=== PATIENT | female | born 1950 | race Caucasian/White ===

== ENCOUNTER 2025-06-23 05:54 | Emergency (ER) | payer MEDICARE, OTHER, SELFPAY ==
[2025-06-23 06:13] VITALS: BP 120/79
--- NOTE | 2025-06-23 08:05 | ED.GENMED ---
History of Present Illness
General
Chief Complaint: Musculo-Skeletal Complaint
Time Seen by Provider: 06/23/25 07:47
History of Present Illness
History of Present Illness:
75-year-old female presents to the emergency department for evaluation of progressively worsening right knee and right calf swelling for the past 3 days. Denies any falls or injuries. She has known arthritis but does not typically have swelling in
the knee. Has not taken any medication for pain. She is able to ambulate. No fevers or chills
Past History
Past History
ED Past Medical History: Asthma
ED Past Surgical History: None
Social History
Tobacco: Non-smoker
Alcohol: None
Drug: None
Personal:
Living: with family
Employment: Retired
Review of Systems
Review of Systems
Allergies reviewed?: Yes
All Other Systems: ROS reviewed and negative except as documented in HPI and ROS
Phy Exam
Physical Exam
Physical Exam:
GEN: Well appearing, NAD, WDWN
HEENT: Oral mucosa moist, no scleral icterus
Cardiac: Regular rate
Lung: No respiratory distress, no tachypnea
MSK: Right knee effusion noted with moderate swelling of the proximal calf, tenderness to the popliteal space, no calf rigidity, negative Homans' sign, strong dorsalis pedis pulse
Skin: Good color, no pallor or jaundice, no rashes
Neuro: AO x3, moves all extremities freely
Psych: Calm, cooperative
Course
Orders/Labs/Results
Orders:
Orders
06/23/25 06:19
Knee, Right 4 or More Views [CR Knee- Right 4 Or More View*] Urgent
Comment:
Reason For Exam: pain and swelling
Vital Signs
Initial and Last Documented VS:
Initial Vital Signs
Temp Pulse Resp BP Pulse Ox
98.5 F 95 20 120/79 96
06/23/25 06:13 06/23/25 06:13 06/23/25 06:13 06/23/25 06:13 06/23/25 06:13
Last Documented Vital Signs
Temp Pulse Resp BP Pulse Ox
98.5 F 87 18 134/78 96
06/23/25 08:11 06/23/25 08:11 06/23/25 08:11 06/23/25 08:11 06/23/25 08:11
MDM/Problems Addressed
MDM/Problems Addressed:
X-ray shows degenerative changes with a small effusion independently interpreted by me. Clinically this is most likely ruptured Rivas's cyst secondary to persistent arthritis. No concern for DVT. Will prescribe NSAIDs and recommend orthopedic
follow-up, no concern for septic arthritis no indication for emergent arthrocentesis
*Pulse Oximetry
SaO2: 96
Oxygen Mode of Delivery: Room air
Patient hypoxic: no
*Critical Care Note
Total Time (30-74mins, 75-104mins- exclusive of procedures): Not Applicable
ED Attending Note
-
Portions of this chart may have been created with voice recognition software.� Occasional wrong word or��sound alike� substitutions may have occurred due to the inherent limitations of voice recognition software.
Discharge Plan
Departure
Patient Disposition: Home (Routine Discharge)
Date of Disposition: 06/23/25
Time of Disposition: 08:05
Patient with high blood pressure during this ER visit?: No
Discharge Problem:
Arthritis of right knee
Instructions: Osteoarthritis
Prescriptions:
New
celecoxib 200 mg capsule
200 mg PO BID Qty: 20 0RF
No Action
hydrocodone-acetaminophen 5 MG/500 MG tablet
1 tab PO .Q4-6HPRN PRN (Reason: PAIN) Qty: 20 0RF
fluticasone propion-salmeterol 1 DISK blister with device
1 puff inhalation DAILY
cefixime [Suprax] 400 MG tablet
400 mg PO DAILY Qty: 10 0RF
metronidazole 500 MG tablet
500 mg PO TID Qty: 30 0RF
Referrals:
Demarcus Durán MD [Active, Orthopedics] - Call in 1-3 days for appt
Interventions
Interventions:
*Risk Screen - Suicide Last Done: 06/23/25 06:13
*General Assessment Last Done: 06/23/25 06:13
*Neglect/Abuse Screening Last Done: 06/23/25 06:13
*ED- Fall Risk Assessment Last Done: 06/23/25 06:13
*ED COVID-19 Vaccine History Last Done: 06/23/25 06:13
*ED Influenza Vaccine History Last Done: 06/23/25 06:13
*Nursing Disposition Last Done: 06/23/25 08:11
ED-Musculoskeletal Assessment Last Done: 06/23/25 08:08
Discharge Date and Time
Discharge Date/Time: 06/23/25 08:12
Print Language: [id number]
[2025-06-23 08:08] VITALS: BP 134/78; BMI 27.0
--- NOTE | 2025-06-23 08:10 | EDRN ---
Discharge instructions given to patient by Sami Minaya PA-C. Verbalized understanding. Refused wheelchair when offered.
[2025-06-23 08:11] VITALS: BP 134/78
== END 2025-06-23 08:12 | disposition home or self-care (01) ==
LOC: EMR 05:54
PROVIDERS: EMERGENCY PHYSICIAN Emergency Medicine
DX: M17.11 Unilateral primary osteoarthritis, right knee (principal); J45.909 Unspecified asthma, uncomplicated
CPT/HCPCS: 99283; 73564

== ENCOUNTER 2025-06-26 08:20 | Emergency (ER) | payer MEDICARE, OTHER, SELFPAY ==
[2025-06-26 08:26] VITALS: BP 133/81
--- NOTE | 2025-06-26 09:50 | ED.GENMED ---
History of Present Illness
General
Chief Complaint: Swelling
Source: patient
Exam Limitations: none
Time Seen by Provider: 06/26/25 09:48
Nursing documentation reviewed up to this point in time: agreed with
History of Present Illness
History of Present Illness:
75-year-old female with history of asthma, presented here on 3 days ago for worsening right knee and right calf pain and swelling over the previous 3 days. X-ray showed DJD with small effusion and diagnosed clinically with a Rivas's cyst. She is
here today with increasing swelling and pain in the right lower leg. Denies chest pain or shortness of breath. Denies fever or chills.
Past History
Past History
ED Past Medical History: Asthma
ED Past Surgical History: Orthopedic
Social History
Tobacco: Non-smoker
Alcohol: None
Drug: None
Personal:
Living: with family
Employment: Retired
Review of Systems
Review of Systems
Allergies reviewed?: Yes
All Other Systems: ROS reviewed and negative except as documented in HPI and ROS
Phy Exam
Physical Exam
Physical Exam:
GENERAL: No acute distress. A&Ox3.
CONSTITUTIONAL: Afebrile.
RESPIRATORY: Regular respirations, nonlabored, lungs clear.
CARDIOVASCULAR: Regular rate and rhythm, no murmurs, no rubs.
MUSCULOSKELETAL: Right leg from knee to ankle +1-2 swelling, warm compared to the opposite leg. Normal pedal pulse, brisk capillary refill. Generally mildly tender to palpate. In general patient moves with ease. Well perfused.
SKIN: Warm, dry, pink. Both mid leblanc to ankles mildly erythematous with numerous tiny scabs consistent with her admitting that she scratches the areas frequently.
PSYCH: Normal mood and affect. Well kept, interactive and appropriate
NEUROLOGIC: Awake, alert and oriented. No focal neurological deficits
Scores
Heart Failure Risk
Heart Failure Risk Score: Not Applicable
Course
Orders/Labs/Results
Orders:
Orders
06/26/25 08:28
Periph Venous Lwr Ext Rt US [US Periph Venous LOWER Ext RT] Urgent
Comment:
Reason For Exam: swelling
Vital Signs
Initial and Last Documented VS:
Initial Vital Signs
Temp Pulse Resp BP Pulse Ox
98.5 F 95 18 133/81 98
06/26/25 08:26 06/26/25 08:26 06/26/25 08:26 06/26/25 08:26 06/26/25 08:26
Last Documented Vital Signs
Temp Pulse Resp BP Pulse Ox
98.5 F 95 18 123/75 94
06/26/25 08:26 06/26/25 08:26 06/26/25 08:26 06/26/25 10:15 06/26/25 10:17
MDM/Problems Addressed
Differential Diagnosis Includes:
DVT, ruptured Rivas's cyst, cellulitis
MDM/Problems Addressed:
75-year-old female with history of asthma, presented here on 3 days ago for worsening right knee and right calf pain and swelling over the previous 3 days. X-ray showed DJD with small effusion and diagnosed clinically with a Rivas's cyst. She is
here today with increasing swelling and pain in the right lower leg. Denies chest pain or shortness of breath. Denies fever or chills.
Afebrile, NAD
Ultrasound right lower extremity radiology report read: No sonographic evidence for RIGHT lower extremity deep venous thrombosis.
There is a 12.2 x 2.1 x 3.7 cm complex collection extending from the popliteal fossa into the proximal calf. This may represent a large complex Rivas's cyst, hematoma or possible collection/abscess.
Copy of report as well as a picture of Rivas's cyst provided to patient with education
She has mild erythema of both ankles with numerous tiny scabs consistent with her admission to scratching the areas frequently. No cellulitis
She states the discomfort right now is 3-4 out of 10, it gets up to 9 at times when she is walking. She is however able to ambulate independently. No infectious symptoms, do not suspect abscess.
Referred to orthopedic for follow-up. She was referred to orthopedics Dr. Durán when she was here 3 days ago but has not called them yet
She will call today for appointment. Daughter at bedside.
*Pulse Oximetry
SaO2: 98
Oxygen Mode of Delivery: Room air
Patient hypoxic: no
*Critical Care Note
Total Time (30-74mins, 75-104mins- exclusive of procedures): Not Applicable
ED Attending Note
-
Portions of this chart may have been created with voice recognition software.� Occasional wrong word or��sound alike� substitutions may have occurred due to the inherent limitations of voice recognition software.
Discharge Plan
Departure
Patient Disposition: Home (Routine Discharge)
Date of Disposition: 06/26/25
Time of Disposition: 10:32
Patient with high blood pressure during this ER visit?: No
Condition: Good
Discharge Problem:
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
Instructions: Rivas's Cyst (DC)
Prescriptions:
No Action
fluticasone propion-salmeterol 1 DISK blister with device
1 puff inhalation DAILY
celecoxib 200 mg capsule
200 mg PO BID Qty: 20 0RF
acetaminophen [Tylenol] 325 mg Tablet
650 mg PO Q4H PRN (Reason: pain)
Referrals:
Demarcus Durán MD [Active, Orthopedics] - Call in 1-3 days for appt
UNKNOWN - PT NOT,INTERVIEWE [Unknown Provider]
Activity Restrictions/Additional Instructions:
As we discussed, since the Celecoxib is not helping, STOP that and try Ibuprofen 400 mg up to twice a day along with Tylenol if needed.
When you are resting, keep the foot elevated to the level of your heart or slightly higher.
Continue to move the leg doing the isometric exercises as we showed you and you may walk around as usual but no lengthy walking until further instructed by the orthopedic doctor.
Call the orthopedic doctors office today and make appointment.
Return here immediately from worse swelling, worse pain, fever, worsening redness, chills or feeling worse in any way
Interventions
Interventions:
*Risk Screen - Suicide Last Done: 06/26/25 08:26
*General Assessment Last Done: 06/26/25 08:26
*Neglect/Abuse Screening Last Done: 06/26/25 10:21
*ED- Fall Risk Assessment Last Done: 06/26/25 10:20
*ED COVID-19 Vaccine History Last Done: 06/26/25 10:20
*ED Influenza Vaccine History Last Done: 06/26/25 10:20
*Nursing Disposition Last Done: 06/26/25 10:53
ED- Cardiac Assessment Last Done: 06/26/25 10:21
ED- Pulmonary Assessment Last Done: 06/26/25 10:21
ED-Skin Assessment Last Done: 06/26/25 10:21
Discharge Date and Time
Discharge Date/Time: 06/26/25 10:50
Print Language: LAO
[2025-06-26 10:12] VITALS: BMI 26.3
[2025-06-26 10:13] VITALS: BP 123/75
[2025-06-26 10:15] VITALS: BP 123/75
== END 2025-06-26 10:50 | disposition home or self-care (01) ==
LOC: EMR 08:20
PROVIDERS: EMERGENCY PHYSICIAN Emergency Medicine; FAMILY PHYSICIAN Family Medicine
DX: M71.21 Synovial cyst of popliteal space [Baker], right knee (principal); J45.909 Unspecified asthma, uncomplicated; M17.11 Unilateral primary osteoarthritis, right knee
CPT/HCPCS: 99284; 93971

== ENCOUNTER 2025-06-29 07:08 | Emergency (ER) | payer MEDICARE, OTHER, SELFPAY ==
[2025-06-29 07:18] VITALS: BP 127/83
--- NOTE | 2025-06-29 07:57 | ED.GENMED ---
History of Present Illness
General
Chief Complaint: Musculo-Skeletal Complaint
Source: patient
Exam Limitations: none
Time Seen by Provider: 06/29/25 07:31
Nursing documentation reviewed up to this point in time: agreed with
History of Present Illness
History of Present Illness:
Patient presents to ED secondary to worsening right knee/leg pain with swelling and redness over the past 10 days. Patient has been evaluated in ED on multiple occasion for similar complaint. Most recent visit 2 days ago, during which time
ultrasound revealed Rivas's cyst with possible rupture. Since then, she states that her redness, swelling, and pain have all worsened. Denies fever or chills. Denies trauma. Denies previous history of similar symptoms. No recent travel or
surgery. Patient does have red spots on lower leg, which patient attributes to itchiness, which is causing patient to scratch the leg with minimal bleeding.
Past History
Past History
ED Past Medical History: Asthma
ED Past Surgical History: Orthopedic
Social History
Tobacco: Non-smoker
Alcohol: None
Drug: None
Personal:
Living: with family
Employment: Retired
Review of Systems
Review of Systems
Allergies reviewed?: Yes
All Other Systems: ROS reviewed and negative except as documented in HPI and ROS
Constitutional: Reports no symptoms; Denies fever
Musculoskeletal: Reports edema
Skin: Reports other (Leg redness)
Neurological: Reports no symptoms
Phy Exam
Physical Exam
Physical Exam:
Physical Exam
General: mild painful distress, not acutely ill. afebrile
Head: nc/at. eomi
Neck: supple. normal range of motion
Neuro: alert and oriented x 3. no focal neurological deficits
Skin: no rash
Psychiatric: well kept. interactive and cooperative
Extremities: RLE edema noted with mild lower leg erythema with warmth. multiple petechial rash noted, without active bleeding. no patellar redness though with diffuse swelling
Course
Orders/Labs/Results
Orders:
Orders
06/29/25 08:01
Acetaminophen [Tylenol] 650 mg PO NOW STA
06/29/25 08:21
Basic Metabolic Panel Urgent
CBC/With Reticulocyte Count Urgent
CRP [C-Reactive Protein] Urgent
Lactate Level [Lactic Acid] Urgent
Blood Culture Q30M
DEENA Source: Blood/Venous
Specimen Description:
Blood Culture Q30M
DEENA Source: Blood/Venous
Specimen Description:
06/29/25 10:37
Cephalexin Monohydrate [Keflex] 500 mg PO NOW STA
Abnormal Lab Results
06/29/25
08:21
RBC 4.08 L 10^6/uL
(4.20-5.40)
MCHC 31.9 L g/dL
(33.0-37.0)
Absolute Neuts (auto) 7.0 H 10^3/uL
(1.4-6.5)
Absolute Lymphs (auto) 0.9 L 10^3/uL
(1.2-3.4)
Absolute Monos (auto) 0.8 H 10^3/uL
(0.1-0.6)
Neutrophils % 76.7 H %
(42.2-75.2)
Lymphocytes % 10.1 L %
(20.5-51.1)
Carbon Dioxide 31 H mmol/L
(22-30)
BUN 21 H mg/dl
(7-17)
Glucose 107 H mg/dl
(70-99)
C-Reactive Protein 126.40 H mg/L
(0.0-10.00)
06/29/25 08:21
06/29/25 08:21
Vital Signs
Initial and Last Documented VS:
Initial Vital Signs
Temp Pulse Resp BP Pulse Ox
98.7 F 91 18 127/83 96
06/29/25 07:18 06/29/25 07:18 06/29/25 07:18 06/29/25 07:18 06/29/25 07:18
Last Documented Vital Signs
Temp Pulse Resp BP Pulse Ox
98.7 F 91 18 111/66 94
06/29/25 07:18 06/29/25 07:18 06/29/25 07:18 06/29/25 10:41 06/29/25 10:35
MDM/Problems Addressed
MDM/Problems Addressed:
Ultrasound of lower extremity report from 2 days ago reviewed. No indication to repeat ultrasound at this time. History and exam concerning for potential cellulitis. Blood work within normal limits patient otherwise remains afebrile, helically
stable, and nontoxic-appearing. As such, after discussion, decision made to discharge patient home on oral antibiotics, with close PCP follow-up, or return to with worsening symptoms.
*Pulse Oximetry
SaO2: 96
Oxygen Mode of Delivery: Room air
Patient hypoxic: no
*Critical Care Note
Total Time (30-74mins, 75-104mins- exclusive of procedures): Not Applicable
ED Attending Note
-
Portions of this chart may have been created with voice recognition software.� Occasional wrong word or��sound alike� substitutions may have occurred due to the inherent limitations of voice recognition software.
Discharge Plan
Departure
Patient Disposition: Home (Routine Discharge)
Date of Disposition: 06/29/25
Time of Disposition: 10:40
Patient with high blood pressure during this ER visit?: Yes
Condition: Fair
Discharge Problem:
Cellulitis
Instructions: Cellulitis (skin infection) in adults (DC)
Prescriptions:
New
cephalexin 500 mg capsule
500 mg PO Q8H Qty: 20 0RF
No Action
fluticasone propion-salmeterol 1 DISK blister with device
1 puff inhalation DAILY
celecoxib 200 mg capsule
200 mg PO BID Qty: 20 0RF
acetaminophen [Tylenol] 325 mg Tablet
650 mg PO Q4H PRN (Reason: pain)
Referrals:
Arlet Martínez MD [Family Provider, Family Practice]
Activity Restrictions/Additional Instructions:
As discussed, please follow-up with your primary care physician for reevaluation next week. Please consider return to ED with worsening symptoms, i.e. fever/worsening pain/swelling/vomiting. Your prescription has been sent electronically to [facility]
pharmacy in [place].
Interventions
Interventions:
*Risk Screen - Suicide Last Done: 06/29/25 07:18
*General Assessment Last Done: 06/29/25 07:18
*Neglect/Abuse Screening Last Done: 06/29/25 07:18
*ED- Fall Risk Assessment Last Done: 06/29/25 08:25
*ED COVID-19 Vaccine History Last Done: 06/29/25 08:25
*ED Influenza Vaccine History Last Done: 06/29/25 08:25
*Nursing Disposition Last Done: 06/29/25 10:48
ED-Musculoskeletal Assessment Last Done: 06/29/25 08:26
Discharge Date and Time
Discharge Date/Time: 06/29/25 11:09
Print Language: [id number]
[2025-06-29] MEDS: TYLENOL 650 MG PO (08:12)
[2025-06-29 08:16] VITALS: BP 114/70
[2025-06-29 08:24] VITALS: BMI 25.0
[2025-06-29 08:41] LABS: Hematocrit 37.9 % (37.0-47.0); Hemoglobin 12.1 g/dL (12.0-16.0); Mean Corp Hgb Conc. 31.9 g/dL (33.0-37.0); Mean Corpuscular Volume 92.9 fL (81.0-99.0); Nucleated Red Blood Cells % 0 %; Platelet Count 343 10^3/uL (130-400); Red Cell Dist. Width 11.9 % (11.5-14.5); Reticulocyte Count 1.1 % (0.4-2.8)
[2025-06-29 09:00] VITALS: BP 101/60
[2025-06-29 09:01] LABS: Blood Urea Nitrogen 21 mg/dl (7-17); Calcium 8.9 mg/dl (8.4-10.2); Carbon Dioxide 31 mmol/L (22-30); Chloride 105 mmol/L (98-107); Estimated Creatinine Clearance 62 ml/min; Glucose 107 mg/dl (70-99); Potassium 3.9 mmol/L (3.5-5.1); Sodium 141 mmol/L (135-145); eGFR > 60.00
[2025-06-29 09:18] LABS: C-Reactive Protein 126.40 mg/L (0.0-10.00)
[2025-06-29 10:00] VITALS: BP 106/69
[2025-06-29] MEDS: KEFLEX 500 MG PO (10:40)
[2025-06-29 10:41] VITALS: BP 111/66
== END 2025-06-29 11:09 | disposition home or self-care (01) ==
LOC: EMR 07:08
PROVIDERS: EMERGENCY PHYSICIAN Emergency Medicine; FAMILY PHYSICIAN Family Medicine
DX: L03.115 Cellulitis of right lower limb (principal); M79.604 Pain in right leg; J45.909 Unspecified asthma, uncomplicated; M71.21 Synovial cyst of popliteal space [Baker], right knee; M19.90 Unspecified osteoarthritis, unspecified site
CPT/HCPCS: 99283; 80048; 83605; 85025; 85045; 86140; 87040